=== PATIENT | male | born 1955 | race Caucasian/White ===

== ENCOUNTER 2017-10-14 11:00 | Day surgery (SDC) | payer BC ==
[2017-10-13 11:39] VITALS: BMI 30.4
[2017-10-14 12:41] VITALS: TEMP 97.5
[2017-10-14 15:15] VITALS: BP 121/80; PULSE 66
--- NOTE | 2017-10-17 13:12 | PATH ---
Surgical Pathology Report Patient Name: CLINTON GEORGES [facility]. Rec. #: [id number] /Age/Gender: 1955 (Age: 62) / M Account: [id number] Location: [facility] [place]-ENDOSCOPY Taken: 10/14/2017 Received: 10/14/2017 Reported: 10/17/2017 Physicians: Alena Barney M.D. Specimen(s) Received A: BX DUODENUM B: BX ANTRUM C: BX DISTAL AND MID ESOPHAGUS Clinical History Preoperative diagnosis: Abdominal pain, rule out ulcer Postoperative diagnosis: Nonerosive reflux esophagitis, normal colonoscopy Final Diagnosis A. DUODENUM, SECOND PORTION AND BULB, BIOPSY: DUODENAL MUCOSA WITHOUT SIGNIFICANT PATHOLOGIC FINDINGS. B. STOMACH, ANTRUM, BIOPSY: GASTRIC ANTRAL MUCOSA WITH MILD CHRONIC GASTRITIS. IMMUNOHISTOCHEMICAL STAIN FOR H. PYLORI IS NEGATIVE. C. DISTAL AND MID ESOPHAGUS, BIOPSY: SQUAMOCOLUMNAR MUCOSA WITH MILD CHRONIC INFLAMMATION AND FOCAL VASCULAR CONGESTION. NO INTESTINAL METAPLASIA OR DYSPLASIA IDENTIFIED. NO EVIDENCE OF EOSINOPHILIC ESOPHAGITIS IDENTIFIED. Electronically Signed Magdalena De Anda M.D. Gross Description A. Received in formalin, labeled "biopsy second portion of duodenum and bulb" are 3 schmidt, irregular portions of soft tissue ranging from 0.3-0.5 cm. in greatest dimension. The specimens are submitted in toto in one cassette. B. Received in formalin, labeled "biopsy antrum" are 4 schmidt, irregular portions of soft tissue ranging from 0.2-0.4 cm. in greatest dimension. The specimens are submitted in toto in one cassette. C. Received in formalin, labeled "biopsy distal and mid esophagus" are 2 schmidt, irregular portions of soft tissue measuring 0.4 and 0.5 cm. in greatest dimension. The specimens are submitted in toto in one cassette. DL/10/14/2017 saudi10/14/2017
== END 2017-10-14 13:35 | disposition home or self-care (01) ==
LOC: JASU-ENDO 11:00
PROVIDERS: ATTEND Internal Medicine Gastroenterology
PROC: 0DB98ZX Excision of Duodenum, Via Natural or Artificial Opening Endoscopic, Diagnostic (ICD-10-PCS; 2017-10-14)
PROC: 0DB68ZX Excision of Stomach, Via Natural or Artificial Opening Endoscopic, Diagnostic (ICD-10-PCS; 2017-10-14)
PROC: 0DB28ZX Excision of Middle Esophagus, Via Natural or Artificial Opening Endoscopic, Diagnostic (ICD-10-PCS; 2017-10-14)
PROC: 0DB38ZX Excision of Lower Esophagus, Via Natural or Artificial Opening Endoscopic, Diagnostic (ICD-10-PCS; 2017-10-14)
PROC: 0DJD8ZZ Inspection of Lower Intestinal Tract, Via Natural or Artificial Opening Endoscopic (ICD-10-PCS; principal; 2017-10-14 12:00)
DX: K57.30 Diverticulosis of large intestine without perforation or abscess without bleeding (principal); K21.9 Gastro-esophageal reflux disease without esophagitis; R10.12 Left upper quadrant pain; Z86.010 Personal history of colon polyps
CPT/HCPCS: 88305-TC; 88342-TC

== ENCOUNTER 2024-05-11 04:15 | Day surgery (SDC) | payer OTHER, BC ==
[2024-05-04 12:50] VITALS: BMI 29.4
[2024-05-11 08:39] VITALS: TEMP 98
[2024-05-11 09:08] VITALS: BP 128/75; PULSE 69; RESP 20
== END 2024-05-11 09:30 | disposition home or self-care (01) ==
LOC: JASU-ENDO 04:15
PROVIDERS: ATTEND Internal Medicine Gastroenterology
PROC: 0DB98ZX Excision of Duodenum, Via Natural or Artificial Opening Endoscopic, Diagnostic (ICD-10-PCS; 2024-05-11)
PROC: 0DB78ZX Excision of Stomach, Pylorus, Via Natural or Artificial Opening Endoscopic, Diagnostic (ICD-10-PCS; 2024-05-11)
PROC: 0DB68ZX Excision of Stomach, Via Natural or Artificial Opening Endoscopic, Diagnostic (ICD-10-PCS; 2024-05-11)
PROC: 0DBP8ZX Excision of Rectum, Via Natural or Artificial Opening Endoscopic, Diagnostic (ICD-10-PCS; principal; 2024-05-11 08:00)
DX: Z12.11 Encounter for screening for malignant neoplasm of colon (principal); D12.8 Benign neoplasm of rectum; K57.30 Diverticulosis of large intestine without perforation or abscess without bleeding; K29.80 Duodenitis without bleeding; K29.50 Unspecified chronic gastritis without bleeding; Z86.010 Personal history of colon polyps; Z80.0 Family history of malignant neoplasm of digestive organs
CPT/HCPCS: 88305-TC; 88342-TC